=== PATIENT | female | born 1995 | race Caucasian/White ===

== ENCOUNTER 2016-05-27 03:09 | Emergency (ER) | payer SELFPAY ==
[~2016-05-27] VITALS: Ht 180.3 cm; Wt 89.8 kg
[~2016-05-27 03:09] MED LIST: CITA10TA8 PO; HYDR25CA PO; LTHSR/300 PO; MRLP17 PO; TRAZ50TA35 PO
[2016-05-27 03:17] VITALS: TEMP 36.6; Ht 180.3 cm; Wt 89.8 kg
--- NOTE | 2016-05-27 03:42 | EMERGENCY ROOM VISIT NOTE ---
History Report prepared by Debbie: Miguelangel Villalobos Under the Supervision of: Dr. Wu Medeiros M.D. First contact with patient: 03:27 Chief Complaint: MENTAL HEALTH EVALUATION Stated Complaint: MENTAL HEALTH RELATED History of Present Illness The patient is a 20 year old female who presents to the Emergency Room after having thoughts of harming herself prior to arrival. The patient has a history of depression and has been hospitalized for similar symptoms in the past. The patient recently moved to the area and has been struggling with her symptoms. The last time she was treated in-patient was about 5 months ago. The patient is currently not taking any medications or following up with anybody. The patient denies hurting herself recently, but notes that she has cut herself in the past few months. She admits to suicidal ideation, but doesn't have a plan. She also notes more frequent panic attacks. The patient complains of abdominal pain but notes this is baseline since she was diagnosed with IBS a few years ago. Source of History: patient Onset: prior to arrival Position: other (global) Note: Other associated symptoms: suicidal ideation, panic attacks Review of Systems See HPI for pertinent positives & negatives. A total of 10 systems reviewed and were otherwise negative. Past Medical & Surgical Medical Problems: (1) IBS (irritable bowel syndrome) Surgical Problems: (1) S/P appendectomy Family History Gallbladder disease Social History Smoking Status: Current Every Day Smoker Alcohol Use: none Drug Use: none Marital Status: single Occupation Status: employed Current/Historical Medications Scheduled Citalopram Hydrobromide (Celexa), 10 MG PO QAM [place] Carbonate ([place] Carbonate), 600 MG PO BID Scheduled PRN Hydroxyzine Pamoate (Vistaril), 1 CAP PO TID PRN for Anxiety Hydroxyzine Pamoate (Vistaril), 1-2 CAP PO BID PRN for Anxiety Trazodone Hcl (Trazodone), 50 MG PO HS PRN for Sleep Allergies Coded Allergies: No Known Allergies (Unverified , 05/27/16) Physical Exam Vital Signs Date Time Temp Pulse Resp B/P Pulse Ox O2 Delivery O2 Flow Rate FiO2 05/27/16 04:47 84 18 132/78 99 Room Air 05/27/16 03:17 36.6 93 18 134/69 99 Room Air Physical Exam GENERAL: Patient is sad appearing and in minimal distress. HEENT: No acute trauma, normocephalic atraumatic, mucous membranes moist, no nasal congestion, no scleral icterus. NECK: No stridor, no adenopathy, no meningismus, trachea is midline. LUNGS: No dyspnea. Clear to auscultation and equal bilaterally. No wheeze, no rhonchi. HEART: Regular rate and rhythm. No murmurs, rubs, gallops appreciated. ABDOMEN: Soft, nontender, bowel sounds positive, no masses appreciated, no peritonitis. BACK: No midline tenderness, no CVA tenderness EXTREMITIES: Normal motion all extremities, no cyanosis, no edema. NEUROLOGIC: Alert and oriented, no acute motor or sensory deficits, no focal weakness, cranial nerves grossly intact. SKIN: No rash, no jaundice, no diaphoresis. Old, well-healed left forearm lacerations. PSYCH: Admits depression, admits vague suicidal thoughts with no plan and states she would not kill herself, denies homicidal ideation, denies hallucination. Medical Decision & Procedures Laboratory Results Test 05/27/16 03:30 Urine Color YELLOW Urine Appearance SL CLOUDY (CLEAR) Urine pH 5.5 (4.5-7.5) Urine Specific [place] >= 1.030 (1.000-1.030) Urine Protein TRACE (NEG) Urine Glucose (UA) NEG (NEG) Urine Ketones TRACE (NEG) Urine Occult Blood TRACE (NEG) Urine Nitrite NEG (NEG) Urine Bilirubin NEG (NEG) Urine Urobilinogen NEG (NEG) Urine Leukocyte Esterase TRACE (NEG) Urine RBC 5-10 /hpf (0-4) Urine WBC 10-30 /hpf (0-5) Urine Epithelial Cells >30 /lpf (0-5) Urine Bacteria 4+ (NEG) Urine Test NEG (NEG) Urine Opiates Screen NEG (NEG) Urine Methadone, Qualitative NEG (NEG) Urine Barbiturates NEG (NEG) Urine Phencyclidine (PCP) Level NEG (NEG) Ur Amphetamine/Methamphetamine NEG (NEG) MDMA (Ecstasy) Screen POS (NEG) Urine Benzodiazepines Screen NEG (NEG) Urine Cocaine Metabolite NEG (NEG) Urine Marijuana (THC) POS (NEG) Laboratory results as reviewed by me. Medications Administered Medications (Trade) Dose Ordered Sig/Joy Route Start Time Stop Time Status Last Admin Dose Admin Hydroxyzine HCl (Vistaril Tab) 100 mg NOW STAT PO 05/27/16 04:49 05/27/16 04:50 DC 05/27/16 05:02 100 MG ED Course 0331: The patient was evaluated in room A7. A complete history and physical exam was performed. 0449: Ordered Vistaril Tab 100 mg PO. 0523: At the time, the patient met with Meri Gotti who thought she was safe to be discharged home. They will follow-up with her later this week. 0554: Reevaluated the patient. Discussed results and discharge instructions: She verbalized understanding and agreement. The patient is ready for discharge. Medical Decision Differential: Mood Disorder, Overdose, Infectious, Electrolyte Abnormality, Cardiac, Hepatic, Endocrine, Toxicologic, Neurologic, amongst other pathologies entertained. 20 yr old female with long history of depression and mental health disorder off her medications for many months. Arrives anxious and sad requesting to talk to mental health. She denies suicidal plan nor that she would ever try harming herself, though admits previous releases have been cutting. No recent cutting and otherwise she looks well. No distress and discussed at length with Meri Gotti. Meri Gotti agree with outpatient treatment. Patient states she feels comfortable going home and has no plans on harming self. Will send home with some Vistaril which has worked well in past for anxiety. Aware we are always here and can return at any time. Adamantly denies any UTI symptoms and thus will hold off on abx for bacteruria unless infection grows out. Impression Primary Impression: Depression Additional Impression: Acute anxiety Scribe Attestation The scribe's documentation has been prepared under my direction and personally reviewed by me in its entirety. I confirm that the note above accurately reflects all work, treatment, procedures, and medical decision making performed by me. Departure Information Dispostion Home / Self-Care Prescriptions Hydroxyzine Pamoate (VISTARIL) 25 Mg Cap 1-2 CAP PO BID Y for Anxiety for 30 Days, #30 CAP 1 Refill Prov: Wu eMdeiros M.D. 05/27/16 Referrals No Doctor, Assigned (PCP) Forms HOME CARE DOCUMENTATION FORM, IMPORTANT VISIT INFORMATION Patient Instructions ED Depression, My [facility] Additional Instructions Follow up with Mental Health as Planned. Return to ED at any time or call 911 if you feel you may harm yourself or others. Problem Qualifiers Primary Impression: Depression Depression Type: major depressive disorder Major depression recurrence: recurrent Active/Remission status: in partial remission Qualified Codes: F33.41 - Major depressive disorder, recurrent, in partial remission
[2016-05-27 03:52] LABS: MANUAL MICROSCOPIC REQUIRED? YES; URINE APPEARANCE SL CLOUDY (CLEAR); URINE COLOR YELLOW; URINE NITRITE NEG (NEG); URINE PH 5.5 (4.5-7.5); URINE SPECIFIC GRAVITY >= 1.030 (1.000-1.030); UROBILINOGEN NEG (NEG)
[2016-05-27 03:58] LABS: REVIEW REQ? NO; URINE BILIRUBIN NEG (NEG)
[2016-05-27 03:59] LABS: URINE BACTERIA 4+ (NEG)
[2016-05-27 04:00] LABS: ZZUR CULT IF INDIC CLEAN CATCH YES
[2016-05-27 04:05] LABS: PREG INTERNAL NEGATIVE QC NEG CLEAR BACKGROUND; PREG INTERNAL POSITIVE QC POS CONTROL LINE
[2016-05-27 04:12] LABS: BENZODIAZEPINE, URINE NEG (NEG); COCAINE,URINE NEG (NEG); PHENCYCLIDINE, URINE NEG (NEG)
[2016-05-27 04:47] VITALS: BP 132/78; PULSE 84; O2SAT 99
[2016-05-27] MEDS ORDERED: hydrOXYzine HCL 25 MG TAB PO STA (04:49)
[2016-05-27] MEDS ORDERED: HYDR25CA PO (04:51)
[2016-05-27] MEDS ORDERED: EMPTY 8 DRAM VIAL ONE (04:53)
== END 2016-05-27 05:04 | disposition home or self-care (01) ==
LOC: C.EDB 03:10 → C.EDA 05:04
DX: F33.41 Major depressive disorder, recurrent, in partial remission (principal); F41.9 Anxiety disorder, unspecified; K58.9 Irritable bowel syndrome, unspecified; F17.210 Nicotine dependence, cigarettes, uncomplicated; Z79.899 Other long term (current) drug therapy

== ENCOUNTER 2016-05-28 01:42 | Emergency (ER) | payer SELFPAY ==
[~2016-05-28] VITALS: Ht 180.3 cm; Wt 90.4 kg
[~2016-05-28 01:42] MED LIST changes: -MRLP17 PO
[2016-05-28 01:48] VITALS: TEMP 36.5; Ht 180.3 cm; Wt 90.4 kg
--- NOTE | 2016-05-28 02:08 | EMERGENCY ROOM VISIT NOTE ---
History Report prepared by Debbie: Jt Grubbs Under the Supervision of: Dr. Wu Medeiros M.D. First contact with patient: 01:53 Chief Complaint: MENTAL HEALTH EVALUATION Stated Complaint: MENTAL HEALTH EVALUATION History of Present Illness The patient is a 20 year old female who presents to the Emergency Room for a mental health evaluation. The patient was discharged from the ED yesterday. The patient has been having worsening thoughts of hurting herself since then. She has not tried to hurt herself, but does want to. She denies any alcohol use or drug use today. She reports that no one has hurt her. She has been depressed before. The patient was on [place] for about 4 months, but is not on it anymore. Source of History: patient Onset: [employer] Position: other (global) Symptom Intensity: moderate Quality: other (Mental health evaluation) Timing: worsening Note: The patient is having worsening thoughts of self harm. Review of Systems See HPI for pertinent positives & negatives. A total of 10 systems reviewed and were otherwise negative. Past Medical & Surgical Medical Problems: (1) IBS (irritable bowel syndrome) Surgical Problems: (1) S/P appendectomy Family History Gallbladder disease Social History Smoking Status: Current Every Day Smoker Alcohol Use: none Drug Use: none Marital Status: single Occupation Status: employed Current/Historical Medications Scheduled Citalopram Hydrobromide (Celexa), 10 MG PO QAM [place] Carbonate ([place] Carbonate), 600 MG PO BID Scheduled PRN Hydroxyzine Pamoate (Vistaril), 1 CAP PO TID PRN for Anxiety Hydroxyzine Pamoate (Vistaril), 1-2 CAP PO BID PRN for Anxiety Trazodone Hcl (Trazodone), 50 MG PO HS PRN for Sleep Allergies Coded Allergies: No Known Allergies (Unverified , 05/28/16) Physical Exam Vital Signs Date Time Temp Pulse Resp B/P Pulse Ox O2 Delivery O2 Flow Rate FiO2 05/28/16 08:15 68 18 116/62 100 Room Air 05/28/16 01:48 36.5 94 16 129/76 98 Room Air Physical Exam GENERAL: Patient is well appearing and in no acute distress. HEENT: No acute trauma, normocephalic atraumatic, mucous membranes moist, no nasal congestion, no scleral icterus. NECK: No stridor, no adenopathy, no meningismus, trachea is midline. LUNGS: No dyspnea. Clear to auscultation and equal bilaterally. No wheeze, no rhonchi. HEART: Regular rate and rhythm. No murmurs, rubs, gallops appreciated. ABDOMEN: Soft, nontender, bowel sounds positive, no masses appreciated, no peritonitis. BACK: No midline tenderness, no CVA tenderness EXTREMITIES: Normal motion all extremities, no cyanosis, no edema. NEUROLOGIC: Alert and oriented, no acute motor or sensory deficits, no focal weakness, cranial nerves grossly intact. SKIN: No rash, no jaundice, no diaphoresis. PSYCH: Admits SI without a plan. Admits depression. Does state she wishes to harm herself. She denies any recent hallucinations. Medical Decision & Procedures Laboratory Results 05/28/16 02:20 Red Blood Count 4.66, Mean Corpuscular Volume 88.6, Mean Corpuscular Hemoglobin 30.7, Mean Corpuscular Hemoglobin Concent 34.6, Mean Platelet Volume 9.1, Neutrophils (%) (Auto) 57.2, Lymphocytes (%) (Auto) 28.4, Monocytes (%) (Auto) 12.2, Eosinophils (%) (Auto) 1.8, Basophils (%) (Auto) 0.2, Neutrophils # (Auto ) 5.32, Lymphocytes # (Auto) 2.64, Monocytes # (Auto) 1.13, Eosinophils # (Auto ) 0.17, Basophils # (Auto) 0.02 05/28/16 02:20 Test 05/28/16 02:00 05/28/16 02:20 Urine Color YELLOW Urine Appearance CLEAR (CLEAR) Urine pH 5.5 (4.5-7.5) Urine Specific [place] >= 1.030 (1.000-1.030) Urine Protein 1+ (NEG) Urine Glucose (UA) NEG (NEG) Urine Ketones NEG (NEG) Urine Occult Blood TRACE (NEG) Urine Nitrite NEG (NEG) Urine Bilirubin NEG (NEG) Urine Urobilinogen NEG (NEG) Urine Leukocyte Esterase NEG (NEG) Urine RBC 5-10 /hpf (0-4) Urine WBC 1-5 /hpf (0-5) Urine Epithelial Cells >30 /lpf (0-5) Urine Bacteria NEG (NEG) Urine Test NEG (NEG) Urine Opiates Screen NEG (NEG) Urine Methadone, Qualitative NEG (NEG) Urine Barbiturates NEG (NEG) Urine Phencyclidine (PCP) Level NEG (NEG) Ur Amphetamine/Methamphetamine NEG (NEG) MDMA (Ecstasy) Screen NEG (NEG) Urine Benzodiazepines Screen NEG (NEG) Urine Cocaine Metabolite NEG (NEG) Urine Marijuana (THC) POS (NEG) White Blood Count 9.30 K/uL (4.8-10.8) Red Blood Count 4.66 M/uL (4.2-5.4) Hemoglobin 14.3 g/dL (12.0-16.0) Hematocrit 41.3 % (37-47) Mean Corpuscular Volume 88.6 fL (80-100) Mean Corpuscular Hemoglobin 30.7 pg (25-34) Mean Corpuscular Hemoglobin Concent 34.6 g/dl (32-36) Platelet Count 283 K/uL (130-400) Mean Platelet Volume 9.1 fL (7.4-10.4) Neutrophils (%) (Auto) 57.2 % Lymphocytes (%) (Auto) 28.4 % Monocytes (%) (Auto) 12.2 % Eosinophils (%) (Auto) 1.8 % Basophils (%) (Auto) 0.2 % Neutrophils # (Auto) 5.32 K/uL (1.4-6.5) Lymphocytes # (Auto) 2.64 K/uL (1.2-3.4) Monocytes # (Auto) 1.13 K/uL (0.11-0.59) Eosinophils # (Auto) 0.17 K/uL (0-0.5) Basophils # (Auto) 0.02 K/uL (0-0.2) RDW Standard Deviation 41.8 fL (36.4-46.3) RDW Coefficient of Variation 13.0 % (11.5-14.5) Immature Granulocyte % (Auto) 0.2 % Immature Granulocyte # (Auto) 0.02 K/uL (0.00-0.02) Anion Gap 15.0 mmol/L (3-11) Est Creatinine Clear Calc Drug Dose 100.4 ml/min Estimated GFR () 83.1 Estimated GFR (Non- 71.7 BUN/Creatinine Ratio 10.5 (10-20) Calcium Level 8.6 mg/dl (8.5-10.1) Total Bilirubin 0.3 mg/dl (0.2-1) Aspartate Amino Transf (AST/SGOT) 9 U/L (15-37) Alanine Aminotransferase (ALT/SGPT) 15 U/L (12-78) Alkaline Phosphatase 45 U/L (45-117) Total Protein 7.3 gm/dl (6.4-8.2) Albumin 3.7 gm/dl (3.4-5.0) Globulin 3.6 gm/dl (2.5-4.0) Albumin/Globulin Ratio 1.0 (0.9-2) Thyroid Stimulating Hormone (TSH) 1.570 uIu/ml (0.300-4.500) Salicylates Level 2.2 mg/dl (2.8-20) Acetaminophen Level < 2 ug/ml (10-30) Ethyl Alcohol mg/dL < 3.0 mg/dl (0-3) Laboratory results as reviewed by me. Medications Administered Medications (Trade) Dose Ordered Sig/Joy Route Start Time Stop Time Status Last Admin Dose Admin Lorazepam (Ativan Tab) 1 mg NOW STAT SL 05/28/16 02:56 05/28/16 02:57 DC 05/28/16 03:04 1 MG Potassium Chloride (Klor-Con M10) 40 meq STK-MED ONCE .ROUTE 05/28/16 06:05 05/28/16 06:07 DC 05/28/16 06:11 40 MEQ Ondansetron HCl (Zofran Odt) 4 mg ONE STAT PO 05/28/16 08:05 05/28/16 08:06 DC 05/28/16 08:14 4 MG ED Course 0153: The patient was evaluated in room A6. A complete history and physical exam was performed. 0256: Ativan Tab 1 mg SL 0600: I was notified that [facility] will accept the patient if we recheck her Potassium lab test. 0602: Potassium Chloride 40 meq PO 0605: Potassium Chloride 40 meq .ROUTE 0630: The patient was accepted to [facility] and will be transferred. Medical Decision Differential: Mood Disorder, Overdose, Infectious, Electrolyte Abnormality, Cardiac, Hepatic, Endocrine, Toxicologic, Neurologic, amongst other pathologies entertained. 20 yr old pleasant yet clearly very depressed 20 yr old female known to me from evaluation last night. Initially she felt she could manage as outpatient though notes over last few days worsening depression and over last 24 hours since leaving last night increasing thoughts of cutting/injuring herself. She has not harmed self though is very certain she will do so if she doesn't get inpatient treatment. She does not have specific plan at this time. Does have history of cutting though is worried this will be more than that. No outpatient care. She is off all of her meds for many months. She has many previous inpatient treatments. She is having family issues/stressors. Does enjoy her job. Denies injuries nor others harming her. She is stable, medically clear and no intoxicated. Clear from medical standpoint for mental health evaluation. Given Ativan PO for anxiety. CAN help in to evaluate patient further. Of note, mild hypokalemia which [facility] requested would be replaced prior to accepting patient. Patient eating well, well hydrated and in no distress. No indication of chronic replacement therapy necessary currently. Can follow up with outpatient for repeat check in the future. Accepted to [facility] for further evaluation and treatment. Impression Primary Impression: Suicidal ideation Additional Impressions: Depression Acute anxiety Hypokalemia Scribe Attestation The scribe's documentation has been prepared under my direction and personally reviewed by me in its entirety. I confirm that the note above accurately reflects all work, treatment, procedures, and medical decision making performed by me. Departure Information Dispostion Mental Health Acute Care Referrals No Doctor, Assigned (PCP) Patient Instructions My [facility] Problem Qualifiers Additional Impressions: Depression Depression Type: major depressive disorder Major depression recurrence: recurrent Active/Remission status: currently active Major depression episode severity: severe Psychotic features: without psychotic features Qualified Codes: F33.2 - Major depressive disorder, recurrent severe without psychotic features
[2016-05-28 02:30] LABS: BASO % 0.2 %; BASO ABS # 0.02 K/uL (0-0.2); COMPLETE YES; EOS % 1.8 %; HEMATOCRIT 41.3 % (37-47); IG% 0.2 %; LYMPH % 28.4 %; LYMPH ABS # 2.64 K/uL (1.2-3.4); MEAN CELL VOLUME 88.6 fL (80-100); MEAN CORPUSCULAR HEMOGLOBIN 30.7 pg (25-34); MEAN CORPUSCULAR HGB CONC 34.6 g/dl (32-36); MEAN PLATELET VOLUME 9.1 fL (7.4-10.4); MONO % 12.2 %; NEUT % 57.2 %; PLATELET COUNT 283 K/uL (130-400); RED BLOOD COUNT 4.66 M/uL (4.2-5.4)
[2016-05-28 02:38] LABS: MANUAL MICROSCOPIC REQUIRED? YES; URINE APPEARANCE CLEAR (CLEAR); URINE COLOR YELLOW; URINE NITRITE NEG (NEG); URINE PH 5.5 (4.5-7.5); URINE SPECIFIC GRAVITY >= 1.030 (1.000-1.030); UROBILINOGEN NEG (NEG)
[2016-05-28 02:47] LABS: REVIEW REQ? NO; URINE BILIRUBIN NEG (NEG)
[2016-05-28 02:48] LABS: URINE BACTERIA NEG (NEG); ZZUR CULT IF INDIC CLEAN CATCH NO
[2016-05-28 02:49] LABS: BUN/CREATININE RATIO 10.5 (10-20); CALCIUM 8.6 mg/dl (8.5-10.1); CREATININE 1.1 mg/dl (0.60-1.20)
[2016-05-28] MEDS ORDERED: LORAZEPAM 1 MG TAB SL STA (02:56)
[2016-05-28 02:59] LABS: ACETAMINOPHEN < 2 ug/ml (10-30); THYROID STIMULATING HORMONE 1.57 uIu/ml (0.300-4.500)
[2016-05-28 03:00] LABS: BENZODIAZEPINE, URINE NEG (NEG); COCAINE,URINE NEG (NEG); PHENCYCLIDINE, URINE NEG (NEG)
[2016-05-28] MEDS ORDERED: POTASSIUM CHLORIDE 20 MEQ TABCR PO STA (06:02)
[2016-05-28] MEDS ORDERED: POTASSIUM CHLORIDE 10 MEQ TABCR ONE (06:05)
[2016-05-28] MEDS ORDERED: ONDANSETRON 4MG OD TAB PO STA (08:05)
[2016-05-28 08:15] VITALS: BP 116/62; PULSE 68; O2SAT 100
== END 2016-05-28 08:30 ==
LOC: C.EDB 01:44 → C.EDA 08:30
DX: F32.9 Major depressive disorder, single episode, unspecified (principal); R45.851 Suicidal ideations; F41.9 Anxiety disorder, unspecified; E87.6 Hypokalemia; K58.9 Irritable bowel syndrome, unspecified; Z79.899 Other long term (current) drug therapy; F17.200 Nicotine dependence, unspecified, uncomplicated; Z98.890 Other specified postprocedural states; Z83.79 Family history of other diseases of the digestive system

== ENCOUNTER 2016-06-21 23:59 | Emergency (ER) | payer OTHER ==
[~2016-06-21] VITALS: Ht 180.3 cm; Wt 93.7 kg
[2016-06-22 00:01] VITALS: TEMP 36.9; Ht 180.3 cm; Wt 93.7 kg
[2016-06-22 00:49] LABS: BASO % 0.3 %; BASO ABS # 0.03 K/uL (0-0.2); COMPLETE YES; EOS % 2.4 %; HEMATOCRIT 38.4 % (37-47); IG% 0.2 %; LYMPH % 28.8 %; LYMPH ABS # 2.94 K/uL (1.2-3.4); MEAN CELL VOLUME 88.3 fL (80-100); MEAN CORPUSCULAR HEMOGLOBIN 29.9 pg (25-34); MEAN CORPUSCULAR HGB CONC 33.9 g/dl (32-36); MEAN PLATELET VOLUME 8.5 fL (7.4-10.4); MONO % 10.9 %; NEUT % 57.4 %; PLATELET COUNT 322 K/uL (130-400); RED BLOOD COUNT 4.35 M/uL (4.2-5.4); WHITE BLOOD COUNT 10.22 K/uL (4.8-10.8)
[2016-06-22 00:52] LABS: URINE APPEARANCE CLEAR (CLEAR); URINE BILIRUBIN NEG (NEG); URINE COLOR YELLOW; URINE EPITHELIAL CELL AUTO >30 /lpf (0-5); URINE NITRITE NEG (NEG); URINE PH 6.5 (4.5-7.5); URINE SPECIFIC GRAVITY 1.016 (1.000-1.030); UROBILINOGEN NEG (NEG); ZZUR CULT IF INDIC CLEAN CATCH YES
[2016-06-22 01:04] LABS: MANUAL MICROSCOPIC REQUIRED? NO; REVIEW REQ? NO
[2016-06-22] MEDS ORDERED: LITH300T2 PO (01:08)
[2016-06-22 01:09] LABS: BENZODIAZEPINE, URINE NEG (NEG); COCAINE,URINE POS (NEG); PHENCYCLIDINE, URINE NEG (NEG)
[2016-06-22] MEDS ORDERED: TRAZ100T29 PO (01:09)
[2016-06-22 01:10] LABS: BUN/CREATININE RATIO 7.2 (10-20); CALCIUM 8.2 mg/dl (8.5-10.1); POTASSIUM 3.8 mmol/L (3.5-5.1)
[2016-06-22] MEDS ORDERED: GABA-112 PO (01:10)
[2016-06-22] MEDS ORDERED: PRAZ1CAP PO (01:12)
[2016-06-22 01:20] LABS: THYROID STIMULATING HORMONE 2.29 uIu/ml (0.300-4.500)
[2016-06-22 01:28] LABS: ACETAMINOPHEN < 2 ug/ml (10-30); LITHIUM 0.4 mMOL/L (0.6-1.2)
[2016-06-22 01:44] VITALS: BP 127/64; PULSE 72; O2SAT 98
--- NOTE | 2016-06-22 02:08 | EMERGENCY ROOM VISIT NOTE ---
History Report prepared by Debbie: Joaquim Lawrence Under the Supervision of: Dr. Wu Medeiros M.D. First contact with patient: 00:06 Chief Complaint: MENTAL HEALTH EVALUATION Stated Complaint: MED CHANGE/PSYCH History of Present Illness The patient is a 20 year old female who presents to the Emergency Room for an acute mental health evaluation. The patient intentionally cut her left thigh approximately 2 hours [employer]. She admits to feeling suicidal without a plan. The patient was discharged from [facility] two weeks ago, where she stayed two weeks for similar mental health complaints. She has continued her [place] and Trazodone, and also started on Gabapentin. The patient believes that there is something off with her medications. She was scheduled to see her doctor two days ago but missed the appointment, which is now rescheduled for five days from now. The patient denies any intentional overdose. She denies alcohol use but did smoke marijuana after cutting herself tonight. The patient would prefer outpatient treatment. She has not been harmed by anybody else recently. The patient was urged to come back to the ED tonight by a friend. She has had a tetanus shot within the past 10 years. Source of History: patient Onset: tonight Position: other (psyche) Quality: other (mental health evaluation) Timing: other (acute) Note: Positive suicidal ideations. Review of Systems See HPI for pertinent positives & negatives. A total of 10 systems reviewed and were otherwise negative. Past Medical & Surgical Medical Problems: (1) IBS (irritable bowel syndrome) Surgical Problems: (1) S/P appendectomy Family History Gallbladder disease Social History Smoking Status: Current Every Day Smoker Alcohol Use: none Drug Use: none Marital Status: single Occupation Status: employed Current/Historical Medications Scheduled Gabapentin (Neurontin), Unknown Dose PO TID [place] Carbonate ([place] Carbonate), 600 MG PO QPM [place] Carbonate ([place] Carbonate), 300 MG PO QAM Prazosin Hcl (Minipress), Unknown Dose PO DAILY Trazodone Hcl (Trazodone), 150 MG PO HS Allergies Coded Allergies: No Known Allergies (Unverified , 05/28/16) Physical Exam Vital Signs Date Time Temp Pulse Resp B/P Pulse Ox O2 Delivery O2 Flow Rate FiO2 06/22/16 01:44 72 16 127/64 98 Room Air 06/22/16 00:01 36.9 96 20 131/85 100 Room Air Physical Exam GENERAL: Patient is depressed appearing in minimal distress. HEENT: No acute trauma, normocephalic atraumatic, mucous membranes moist, no nasal congestion, no scleral icterus. NECK: No stridor, no adenopathy, no meningismus, trachea is midline. LUNGS: No dyspnea. Clear to auscultation and equal bilaterally. No wheeze, no rhonchi. HEART: Regular rate and rhythm. No murmurs, rubs, gallops appreciated. ABDOMEN: Soft, nontender, bowel sounds positive, no masses appreciated, no peritonitis. BACK: No midline tenderness, no CVA tenderness EXTREMITIES: Normal motion all extremities, no cyanosis, no edema. NEUROLOGIC: Alert and oriented, no acute motor or sensory deficits, no focal weakness, cranial nerves grossly intact. SKIN: No rash, no jaundice, no diaphoresis. There are a half dozen superficial lacerations to the left anterior thigh with overlying old scarring, no active bleeding, not requiring stitches, not grossly contaminated. PSYCH: Patient admits to suicidal ideations without a plan. Admits to depression and cutting. Medical Decision & Procedures Laboratory Results 06/22/16 00:31 Red Blood Count 4.35, Mean Corpuscular Volume 88.3, Mean Corpuscular Hemoglobin 29.9, Mean Corpuscular Hemoglobin Concent 33.9, Mean Platelet Volume 8.5, Neutrophils (%) (Auto) 57.4, Lymphocytes (%) (Auto) 28.8, Monocytes (%) (Auto) 10.9, Eosinophils (%) (Auto) 2.4, Basophils (%) (Auto) 0.3, Neutrophils # (Auto ) 5.87, Lymphocytes # (Auto) 2.94, Monocytes # (Auto) 1.11, Eosinophils # (Auto ) 0.25, Basophils # (Auto) 0.03 06/22/16 00:31 Test 06/22/16 00:25 06/22/16 00:31 Urine Color YELLOW Urine Appearance CLEAR (CLEAR) Urine pH 6.5 (4.5-7.5) Urine Specific [place] 1.016 (1.000-1.030) Urine Protein NEG (NEG) Urine Glucose (UA) NEG (NEG) Urine Ketones TRACE (NEG) Urine Occult Blood NEG (NEG) Urine Nitrite NEG (NEG) Urine Bilirubin NEG (NEG) Urine Urobilinogen NEG (NEG) Urine Leukocyte Esterase NEG (NEG) Urine WBC (Auto) 1-5 /hpf (0-5) Urine RBC (Auto) 0-4 /hpf (0-4) Urine Hyaline Casts (Auto) 1-5 /lpf (0-5) Urine Epithelial Cells (Auto) >30 /lpf (0-5) Urine Bacteria (Auto) 1+ (NEG) Urine Test NEG (NEG) Urine Opiates Screen NEG (NEG) Urine Methadone, Qualitative NEG (NEG) Urine Barbiturates NEG (NEG) Urine Phencyclidine (PCP) Level NEG (NEG) Ur Amphetamine/Methamphetamine NEG (NEG) MDMA (Ecstasy) Screen POS (NEG) Urine Benzodiazepines Screen NEG (NEG) Urine Cocaine Metabolite POS (NEG) Urine Marijuana (THC) POS (NEG) White Blood Count 10.22 K/uL (4.8-10.8) Red Blood Count 4.35 M/uL (4.2-5.4) Hemoglobin 13.0 g/dL (12.0-16.0) Hematocrit 38.4 % (37-47) Mean Corpuscular Volume 88.3 fL (80-100) Mean Corpuscular Hemoglobin 29.9 pg (25-34) Mean Corpuscular Hemoglobin Concent 33.9 g/dl (32-36) Platelet Count 322 K/uL (130-400) Mean Platelet Volume 8.5 fL (7.4-10.4) Neutrophils (%) (Auto) 57.4 % Lymphocytes (%) (Auto) 28.8 % Monocytes (%) (Auto) 10.9 % Eosinophils (%) (Auto) 2.4 % Basophils (%) (Auto) 0.3 % Neutrophils # (Auto) 5.87 K/uL (1.4-6.5) Lymphocytes # (Auto) 2.94 K/uL (1.2-3.4) Monocytes # (Auto) 1.11 K/uL (0.11-0.59) Eosinophils # (Auto) 0.25 K/uL (0-0.5) Basophils # (Auto) 0.03 K/uL (0-0.2) RDW Standard Deviation 42.4 fL (36.4-46.3) RDW Coefficient of Variation 13.1 % (11.5-14.5) Immature Granulocyte % (Auto) 0.2 % Immature Granulocyte # (Auto) 0.02 K/uL (0.00-0.02) Anion Gap 10.0 mmol/L (3-11) Est Creatinine Clear Calc Drug Dose 112.3 ml/min Estimated GFR () 93.3 Estimated GFR (Non- 80.5 BUN/Creatinine Ratio 7.2 (10-20) Calcium Level 8.2 mg/dl (8.5-10.1) Total Bilirubin 0.2 mg/dl (0.2-1) Aspartate Amino Transf (AST/SGOT) 8 U/L (15-37) Alanine Aminotransferase (ALT/SGPT) 16 U/L (12-78) Alkaline Phosphatase 48 U/L (45-117) Total Protein 7.1 gm/dl (6.4-8.2) Albumin 3.6 gm/dl (3.4-5.0) Globulin 3.5 gm/dl (2.5-4.0) Albumin/Globulin Ratio 1.0 (0.9-2) Thyroid Stimulating Hormone (TSH) 2.290 uIu/ml (0.300-4.500) Salicylates Level 1.9 mg/dl (2.8-20) Acetaminophen Level < 2 ug/ml (10-30) [place] Level 0.4 mMOL/L (0.6-1.2) Ethyl Alcohol mg/dL < 3.0 mg/dl (0-3) Laboratory results as reviewed by me. ED Course 0007: The patient was evaluated in room A6. A complete history and physical exam was performed. 0120: Patient admits to doing cocaine recently. 0130: [facility] is coming to evaluate the patient. 0205: The patient was evaluated by [facility]. They believe that the patient can go home. 0210: The patient feels completely safe going home. The patient felt like getting away for a few hours. I discussed the discharge instructions with her and she verbalized understanding and agreement. The patient is ready for discharge. Medical Decision Differential: Mood Disorder, Overdose, Infectious, Electrolyte Abnormality, Cardiac, Hepatic, Endocrine, Toxicologic, Neurologic, amongst other pathologies entertained. 20 yr old female well known to me from previous visits. Admits she was doing drugs over the last few days and got quite overwhelmed at a libertarian this evening. After some time in ED feeling much better and stating she is not suicidal nor having need of admission. She feels that she can make it to appointment in 1 week. Already has plenty of meds at home for treatment. She denies any concerns that she may harm herself. Admits she sometimes cuts to release. She has several superficial lacerations to left thigh that do not need repair. We had long discussion about risks of drug use, especially given her psychiatric issues. She feels comfortable going home. [facility] down to evaluate and agree. Patient understands she can return at any time if worsening or other concerns. She does not meet any 302 criteria, there is no 302 petition, and patient is not interested in inpatient treatment at this time. She is stable, clear headache, alert/oriented, and capable of making her own decisions. She has made no act of furtherance in attempt to kill self. Impression Primary Impression: Depression Additional Impressions: Acute anxiety Deliberate self-cutting Cocaine use Marijuana use Scribe Attestation The scribe's documentation has been prepared under my direction and personally reviewed by me in its entirety. I confirm that the note above accurately reflects all work, treatment, procedures, and medical decision making performed by me. Departure Information Dispostion Home / Self-Care Referrals Primary Care Provider Forms HOME CARE DOCUMENTATION FORM, IMPORTANT VISIT INFORMATION Patient Instructions My [facility] Additional Instructions We are always here to help. If you feel you may harm yourself or others return immediately or call 911. Use you medications as prescribed. Follow up with your Psychiatrist as planned. You should avoid the use of illegal medications as they may worsen your depression. Keep your wounds clean and bandaged. Return if signs of infection develop. Problem Qualifiers Primary Impression: Depression Depression Type: major depressive disorder Major depression recurrence: recurrent Active/Remission status: currently active Major depression episode severity: mild Qualified Codes: F33.0 - Major depressive disorder, recurrent , mild
[2016-06-27 03:36] LABS: COCAINE, URINE 5700 NG/ML (CUTOFF=100)
== END 2016-06-22 02:13 | disposition home or self-care (01) ==
LOC: C.EDB 06-22 → C.EDA 06-22 02:13
DX: F33.0 Major depressive disorder, recurrent, mild (principal); F41.9 Anxiety disorder, unspecified; S71.112A Laceration without foreign body, left thigh, initial encounter; X78.9XXA Intentional self-harm by unspecified sharp object, initial encounter; F14.90 Cocaine use, unspecified, uncomplicated; F17.200 Nicotine dependence, unspecified, uncomplicated; R45.851 Suicidal ideations; K58.9 Irritable bowel syndrome, unspecified; F12.90 Cannabis use, unspecified, uncomplicated

== ENCOUNTER 2016-07-10 00:20 | Emergency (ER) | payer OTHER ==
[~2016-07-10] VITALS: Ht 180.3 cm; Wt 92.9 kg
[~2016-07-10 00:20] MED LIST changes: -CITA10TA8 PO; +GABA-112 PO; -HYDR25CA PO; +LITH300T2 PO; +PRAZ1CAP PO; +TRAZ100T29 PO; -TRAZ50TA35 PO
[2016-07-10 00:23] VITALS: TEMP 36.8; Ht 180.3 cm; Wt 92.9 kg
[2016-07-10 00:57] LABS: BASO % 0.2 %; BASO ABS # 0.02 K/uL (0-0.2); COMPLETE YES; EOS % 1.8 %; HEMATOCRIT 37.1 % (37-47); IG% 0.1 %; LYMPH % 34.9 %; LYMPH ABS # 3.59 K/uL (1.2-3.4); MEAN CELL VOLUME 87.7 fL (80-100); MEAN CORPUSCULAR HEMOGLOBIN 30.7 pg (25-34); MEAN PLATELET VOLUME 9.1 fL (7.4-10.4); MONO % 12.1 %; NEUT % 50.9 %; PLATELET COUNT 325 K/uL (130-400); RED BLOOD COUNT 4.23 M/uL (4.2-5.4); WHITE BLOOD COUNT 10.28 K/uL (4.8-10.8)
[2016-07-10 01:12] LABS: URINE APPEARANCE CLEAR (CLEAR); URINE BILIRUBIN NEG (NEG); URINE COLOR YELLOW; URINE NITRITE NEG (NEG); URINE SPECIFIC GRAVITY 1.007 (1.000-1.030); UROBILINOGEN NEG (NEG); ZZUR CULT IF INDIC CLEAN CATCH NO
[2016-07-10 01:14] LABS: BUN/CREATININE RATIO 11.3 (10-20); CALCIUM 8.7 mg/dl (8.5-10.1); CREATININE 0.78 mg/dl (0.60-1.20); POTASSIUM 4.2 mmol/L (3.5-5.1)
[2016-07-10 01:15] LABS: MANUAL MICROSCOPIC REQUIRED? NO; REVIEW REQ? NO
[2016-07-10 01:25] LABS: THYROID STIMULATING HORMONE 1.6 uIu/ml (0.300-4.500)
[2016-07-10 01:29] LABS: ACETAMINOPHEN < 2 ug/ml (10-30)
--- NOTE | 2016-07-10 01:56 | EMERGENCY ROOM VISIT NOTE ---
History Report prepared by Debbie: Jorge Lugo Under the Supervision of: Dr. Dior Colby M.D. First contact with patient: 00:44 Chief Complaint: MENTAL HEALTH EVALUATION Stated Complaint: MENTAL HEALTH History of Present Illness The patient is a 21 year old female who presents to the Emergency Room with complaints of suicidal thoughts beginning over a month ago. She states "I was not having very rational thoughts". She states that she did not have a specific plan to harm herself, but has been constantly contemplating suicide. The patient has a history of self-cutting and states that she has been cutting her thighs recently. Her most recent cutting occurred yesterday on her left thigh. She states that she would likely kill herself by cutting herself if she attempted suicide. She states that this is not a plan, and is simply a vague thought. The patient states that her thoughts have worsened over the past week and a half. She states that she has not gotten out of bed much within the past week. She notes that she has been travelling and living with different family and friends over the past few months. The patient states that she lost her job after her most recent psychiatric hospitalization about a month and a half ago. She denies any recent alcohol consumption. She denies any chance of . Source of History: patient Onset: over a month ago Quality: other (suicidal thoughts) Timing: constant Review of Systems See HPI for pertinent positives & negatives. A total of 10 systems reviewed and were otherwise negative. Past Medical & Surgical Medical Problems: (1) IBS (irritable bowel syndrome) Surgical Problems: (1) S/P appendectomy Family History Gallbladder disease Social History Smoking Status: Current Every Day Smoker Alcohol Use: none Drug Use: none Marital Status: single Occupation Status: employed Current/Historical Medications Scheduled Gabapentin (Neurontin), Unknown Dose PO TID [place] Carbonate ([place] Carbonate), 600 MG PO QPM [place] Carbonate ([place] Carbonate), 300 MG PO QAM Prazosin Hcl (Minipress), Unknown Dose PO DAILY Trazodone Hcl (Trazodone), Unknown Dose PO HS Allergies Coded Allergies: No Known Allergies (Unverified , 07/10/16) Physical Exam Vital Signs Date Time Temp Pulse Resp B/P Pulse Ox O2 Delivery O2 Flow Rate FiO2 07/10/16 10:10 82 20 101/61 99 07/10/16 09:08 82 18 98/45 99 Room Air 07/10/16 05:16 61 20 98/45 99 Room Air 07/10/16 02:21 84 13 113/53 99 Room Air 07/10/16 00:23 36.8 85 18 152/85 98 Room Air Physical Exam Vital signs reviewed. General: Well-appearing female, in no significant distress. HEENT: No scleral icterus, PERRLA, neck supple. Atraumatic. Cardiovascular: Regular rate and rhythm, no extra sounds. Pulmonary: Clear to auscultation bilaterally, normal work of breathing. Abdomen: Soft, nontender, nondistended, positive bowel sounds. Musculoskeletal: Atraumatic, no peripheral edema. Neurologic: Patient awake alert and oriented x 3 Skin: Warm, dry, no rash. Self-inflicted superficial lacerations to the left upper thigh. No active bleeding or signs of cellulitis Psych: Negative homicidal ideation. Positive suicidal ideation. Medical Decision & Procedures Laboratory Results 07/10/16 00:45 Red Blood Count 4.23, Mean Corpuscular Volume 87.7, Mean Corpuscular Hemoglobin 30.7, Mean Corpuscular Hemoglobin Concent 35.0, Mean Platelet Volume 9.1, Neutrophils (%) (Auto) 50.9, Lymphocytes (%) (Auto) 34.9, Monocytes (%) (Auto) 12.1, Eosinophils (%) (Auto) 1.8, Basophils (%) (Auto) 0.2, Neutrophils # (Auto ) 5.24, Lymphocytes # (Auto) 3.59, Monocytes # (Auto) 1.24, Eosinophils # (Auto ) 0.18, Basophils # (Auto) 0.02 07/10/16 00:45 Test 07/10/16 00:45 07/10/16 00:48 White Blood Count 10.28 K/uL (4.8-10.8) Red Blood Count 4.23 M/uL (4.2-5.4) Hemoglobin 13.0 g/dL (12.0-16.0) Hematocrit 37.1 % (37-47) Mean Corpuscular Volume 87.7 fL (80-100) Mean Corpuscular Hemoglobin 30.7 pg (25-34) Mean Corpuscular Hemoglobin Concent 35.0 g/dl (32-36) Platelet Count 325 K/uL (130-400) Mean Platelet Volume 9.1 fL (7.4-10.4) Neutrophils (%) (Auto) 50.9 % Lymphocytes (%) (Auto) 34.9 % Monocytes (%) (Auto) 12.1 % Eosinophils (%) (Auto) 1.8 % Basophils (%) (Auto) 0.2 % Neutrophils # (Auto) 5.24 K/uL (1.4-6.5) Lymphocytes # (Auto) 3.59 K/uL (1.2-3.4) Monocytes # (Auto) 1.24 K/uL (0.11-0.59) Eosinophils # (Auto) 0.18 K/uL (0-0.5) Basophils # (Auto) 0.02 K/uL (0-0.2) RDW Standard Deviation 44.2 fL (36.4-46.3) RDW Coefficient of Variation 13.8 % (11.5-14.5) Immature Granulocyte % (Auto) 0.1 % Immature Granulocyte # (Auto) 0.01 K/uL (0.00-0.02) Anion Gap 9.0 mmol/L (3-11) Est Creatinine Clear Calc Drug Dose 142.2 ml/min Estimated GFR () 125.1 Estimated GFR (Non- 107.9 BUN/Creatinine Ratio 11.3 (10-20) Calcium Level 8.7 mg/dl (8.5-10.1) Total Bilirubin 0.3 mg/dl (0.2-1) Direct Bilirubin 0.1 mg/dl (0-0.2) Aspartate Amino Transf (AST/SGOT) 9 U/L (15-37) Alanine Aminotransferase (ALT/SGPT) 16 U/L (12-78) Alkaline Phosphatase 49 U/L (45-117) Total Protein 7.2 gm/dl (6.4-8.2) Albumin 3.8 gm/dl (3.4-5.0) Thyroid Stimulating Hormone (TSH) 1.600 uIu/ml (0.300-4.500) Salicylates Level < 1.7 mg/dl (2.8-20) Acetaminophen Level < 2 ug/ml (10-30) Ethyl Alcohol mg/dL < 3.0 mg/dl (0-3) Urine Color YELLOW Urine Appearance CLEAR (CLEAR) Urine pH 7.0 (4.5-7.5) Urine Specific [place] 1.007 (1.000-1.030) Urine Protein NEG (NEG) Urine Glucose (UA) NEG (NEG) Urine Ketones NEG (NEG) Urine Occult Blood NEG (NEG) Urine Nitrite NEG (NEG) Urine Bilirubin NEG (NEG) Urine Urobilinogen NEG (NEG) Urine Leukocyte Esterase NEG (NEG) Urine Opiates Screen NEG (NEG) Urine Methadone, Qualitative NEG (NEG) Urine Barbiturates NEG (NEG) Urine Phencyclidine (PCP) Level NEG (NEG) Ur Amphetamine/Methamphetamine NEG (NEG) MDMA (Ecstasy) Screen NEG (NEG) Urine Benzodiazepines Screen NEG (NEG) Urine Cocaine Metabolite NEG (NEG) Urine Marijuana (THC) POS (NEG) Laboratory results per my review. ED Course 0054: Past medical records reviewed. The patient was evaluated in room A6. A complete history and physical examination was performed. 0345: I spoke with the client representative from [employer]. He feels that the patient would be fitting for inpatient care. A bed-search is now underway. 0515: I spoke with the client representative from [employer] again. The patient has been accepted for transfer to [facility] at 1000. 0730: The patient was signed out to Dr. Aguirre at the change of shift pending transportation. Medical Decision Differential diagnosis: Etiologies such as mood disorder, infection, hypoglycemia, electrolyte abnormalities, cardiac sources, intracerebral event, toxicologic, neurologic, as well as others were entertained. This patient was evaluated and appeared to be in no significant distress. The patient was medically cleared. She was evaluated by mobile crisis and accepted to the [facility] on a voluntary basis. The patient will have secure transportation arrangements made however she is not able to go to the [facility] until after 10 AM. She is aware of this plan and agrees. Impression Primary Impression: Suicidal ideation Scribe Attestation The scribe's documentation has been prepared under my direction and personally reviewed by me in its entirety. I confirm that the note above accurately reflects all work, treatment, procedures, and medical decision making performed by me. Departure Information Dispostion Still a Patient (Signed out to Dr. Cortes) Referrals No Doctor, Assigned (PCP) Patient Instructions My [facility]
[2016-07-10 02:31] LABS: BENZODIAZEPINE, URINE NEG (NEG); COCAINE,URINE NEG (NEG); PHENCYCLIDINE, URINE NEG (NEG)
[2016-07-10 10:10] VITALS: BP 101/61; PULSE 82; O2SAT 99
--- NOTE | 2016-07-10 10:15 | EMERGENCY ROOM VISIT NOTE ---
ED Visit Note First contact with patient: 10:14 The patient was signed out to me by Dr. Colby at change of shift. She was awaiting transfer to the [facility] and was transferred shortly after Dr. Colby left the department. I was not involved in her care
== END 2016-07-10 10:11 ==
LOC: C.EDB 00:21 → C.EDA 10:11
DX: R45.851 Suicidal ideations (principal); S71.112A Laceration without foreign body, left thigh, initial encounter; X78.9XXA Intentional self-harm by unspecified sharp object, initial encounter; Y92.89 Other specified places as the place of occurrence of the external cause; F17.210 Nicotine dependence, cigarettes, uncomplicated